=== PATIENT | male | born 1990 | race Caucasian/White ===

== ENCOUNTER 2024-09-17 15:37 | Emergency (ER) | payer OTHER ==
[~2024-09-17] VITALS: Ht 172.7 cm; Wt 70.3 kg
[2024-09-17] MEDS ORDERED: MORPHINE SULFATE INJ 4 MG/ML DISP.SYRIN ONE (15:58)
[2024-09-17] MEDS: MORPHINE SULFATE INJ 2 MG/ML DISP.SYRIN IM ONE (16:01)
[2024-09-17] MEDS ORDERED: KETAMINE HCL (500MG/10ML) 50 MG/ML VIAL ONE (17:16)
[2024-09-17] MEDS ORDERED: PROPOFOL 20 ML IV ONE (17:16)
[2024-09-17] MEDS: PROPOFOL 200 MG/20 ML VIAL IV ONE (17:42)
[2024-09-17] MEDS: KETAMINE HCL (500MG/10ML) 50 MG/ML VIAL IV ONE (17:42)
[2024-09-17 18:48] VITALS: BP 130/75; TEMP 98.2; O2SAT 99
== END 2024-09-17 18:45 | disposition home or self-care (01) ==
LOC: ER 15:37
DX: S43.085A Other dislocation of left shoulder joint, initial encounter (principal); X58.XXXA Exposure to other specified factors, initial encounter; Y93.11 Activity, swimming; Y92.89 Other specified places as the place of occurrence of the external cause; Y99.8 Other external cause status
CPT/HCPCS: 99285; 23650; 99152; 73030 ×2; J2704; J3490; J2270; J7030; G0500